=== PATIENT | female | born 1955 | race Caucasian/White ===

== ENCOUNTER → 2019-06-07 | Outpatient (CLI) | payer OTHER, BC ==
[~2019-06-07] VITALS: Ht 170.2 cm; Wt 68.0 kg
[~2019-06-07] MED LIST: ALL DAY ALLERGY10 M3 PO; ALPRAZOLAM1 MG PO; AMBIEN 5 MG TABL5 MG PO; AZELASTINE205.5 MCG/ NARES; DIFLUCAN200 MG PO; DULOXETINE HCL60 MG PO; ESTRING1 EACH VAG; LORATIDINE 10 M10 M1 PO; PROZAC20 M1 PO; SINGULAIR 10 MG10 M1 PO
[2019-06-07 12:45] VITALS: BP 133/81
[2019-06-07 15:15] VITALS: BP 169/94
[2019-06-07 15:30] VITALS: BP 165/96
[2019-06-07 15:45] VITALS: BP 169/94
[2019-06-07 16:00] VITALS: BP 172/95
== END ==
LOC: CATH 12:22
DX: M54.9 Dorsalgia, unspecified (principal); M80.08XA Age-related osteoporosis with current pathological fracture, vertebra(e), initial encounter for fracture; N18.9 Chronic kidney disease, unspecified; E78.00 Pure hypercholesterolemia, unspecified; E78.5 Hyperlipidemia, unspecified; G47.00 Insomnia, unspecified; F32.9 Major depressive disorder, single episode, unspecified; F41.9 Anxiety disorder, unspecified; K21.9 Gastro-esophageal reflux disease without esophagitis; R53.82 Chronic fatigue, unspecified; Z98.890 Other specified postprocedural states; Z79.899 Other long term (current) drug therapy; Z88.2 Allergy status to sulfonamides; Z88.8 Allergy status to other drugs, medicaments and biological substances

== ENCOUNTER → 2019-07-03 | Outpatient (CLI) | payer OTHER, BC | LOC: SJCVC 09:49 | DX: M80.08XD Age-related osteoporosis with current pathological fracture, vertebra(e), subsequent encounter for fracture with routine healing (principal); E78.00 Pure hypercholesterolemia, unspecified; N18.9 Chronic kidney disease, unspecified; A69.20 Lyme disease, unspecified; K21.9 Gastro-esophageal reflux disease without esophagitis; Z79.899 Other long term (current) drug therapy; X58.XXXD Exposure to other specified factors, subsequent encounter ==